=== PATIENT | female | born 1945 | race Caucasian/White ===

== ENCOUNTER 2017-02-26 12:05 | Day surgery (SDC) | payer MEDICARE, OTHER ==
[2017-02-26] MEDS ORDERED: VITAMIN C500 M3 PO (12:27)
[2017-02-26] MEDS ORDERED: CALCIUM CARBON600 M2 PO (12:28)
[2017-02-26] MEDS ORDERED: ASPIRIN EC325 M1 PO (12:28)
[2017-02-26] MEDS ORDERED: CYMBALTA30 M1 PO (12:29)
[2017-02-26] MEDS ORDERED: VITAMIN D31000 UNI3 PO (12:29)
[2017-02-26] MEDS ORDERED: PLAQUENIL200 M1 PO (12:30)
[2017-02-26] MEDS ORDERED: NEURONTIN300 M1 PO (12:30)
[2017-02-26] MEDS ORDERED: LASIX40 M1 PO (12:30)
[2017-02-26] MEDS ORDERED: IRON325 M3 PO (12:30)
[2017-02-26] MEDS ORDERED: TYLENOL325 M2 PO (12:31)
[2017-02-26] MEDS ORDERED: MAG-AL LIQUID30 M1 PO (12:33)
[2017-02-26] MEDS ORDERED: MOBIC15 M2 PO (12:33)
[2017-02-26] MEDS ORDERED: REQUIP4 M1 PO (12:34)
[2017-02-26 13:28] LABS: BASO % 0.3 % (0-2); EOS % 4.6 % (0-7); EOSINOPHIL ABSOLUTE COUNT 0.3 tho/cmm (0.0-0.7); HCT-HEMATOCRIT 30.4 % (34.0-49.0); HGB-HEMOGLOBIN 9.8 gm/dl (12.0-15.5); IMMATURE GRANULOCYTES ABSOLUTE 0.01 tho/cmm (0-0.03); IMMATURE GRANULOCYTES PERCENT 0.1 % (0-0.3); LYMPH % 16.8 % (20-45); LYMPH ABSOLUTE COUNT 1.2 tho/cmm (0.8-4.5); MCH (MEAN CORPUSCULAR HGB) 29.3 pg (28.0-32.0); MCHC MEAN CORPUSCULAR HGB CONC 32.2 % (32.0-36.0); MCV (MEAN CELL VOLUME) 90.7 fl (82.0-96.0); MEAN PLATELET VOLUME 8.5 cmc (9.4-12.4); MONO % 9.3 % (0-12); MONOCYTE ABSOLUTE COUNT 0.7 tho/cmm (0.0-1.2); NEUTROPHIL ABSOLUTE COUNT 5.1 tho/cmm (1.6-8.0); NEUTROPHIL-AUTOMATED 5.1 tho/cmm (1.6-8.0); NEUTROPHILS % 68.9 % (40-80); PLATELET COUNT 275 tho/cmm (150-450); RED BLOOD COUNT 3.35 mil/cmm (4.00-5.20); RED CELL DISTRIBUTION WIDTH 14.4 % (12.4-16.4); WHITE BLOOD COUNT 7.3 tho/cmm (4.0-10.0)
[2017-02-26 13:40] LABS: ANION GAP 12 mmol/L (0-20); BLOOD UREA NITROGEN 15 mg/dl (6-24); CALCIUM 8.1 mg/dl (8.5-10.5); CARBON DIOXIDE-VENOUS 27 mmol/L (22-32); CHLORIDE 107 mmol/l (96-110); CREATININE 0.76 mg/dl (0.50-1.10); GLUCOSE 108 mg/dL (70-110); POTASSIUM 3.7 mmol/L (3.7-5.1); SODIUM 142 mmol/L (135-145); eGFR VALUE FOR BLACK >90 mL/Min
[2017-05-15] MEDS ORDERED: OSTEO BI-FLEX1 EAC5 PO (10:49)
[2017-05-15] MEDS ORDERED: PLAQUENIL200 M1 PO (10:49)
[2017-05-15] MEDS ORDERED: ROPINIROLE HCL2 M2 PO (10:50)
[2017-05-22] MEDS ORDERED: OXYCONTIN10 M2 PO (14:56)
[2017-05-22] MEDS ORDERED: ASPIRIN325 M3 PO (14:57)
[2017-05-22] MEDS ORDERED: TYLENOL325 M2 PO (14:58)
[2017-05-22] MEDS ORDERED: SENNA S TABLET1 EACH PO (14:59)
== END 2017-03-02 14:05 ==
LOC: SHSB 12:05 → ORE 15:51 → PACU 17:06 → 5EB 17:55
PROVIDERS: Anesthesiology
PROC: 0LQL0ZZ Repair Right Upper Leg Tendon, Open Approach (ICD-10-PCS; principal; 2017-02-26)
DX: T81.31XA Disruption of external operation (surgical) wound, not elsewhere classified, initial encounter (principal); M19.90 Unspecified osteoarthritis, unspecified site; Z79.82 Long term (current) use of aspirin; Z79.1 Long term (current) use of non-steroidal anti-inflammatories (NSAID); Z79.899 Other long term (current) drug therapy; Z96.651 Presence of right artificial knee joint; Z98.890 Other specified postprocedural states; W19.XXXA Unspecified fall, initial encounter
CPT/HCPCS: G8978-GP-CK; G8979-GP-CK; J0171; J0690; J1885; J2270; J2795